=== PATIENT | male | born 1975 | race Caucasian/White ===

== ENCOUNTER 2016-05-30 11:05 | Emergency (ER) | payer BC ==
[~2016-05-30] VITALS: Ht 193 cm; Wt 79.7 kg
[~2016-05-30 11:05] MED LIST: NOHOMEMEDS
[2016-05-30 11:57] LABS: HEMATOCRIT 47.3 % (38.0-50.0); MCH 30.2 PG (29.0-34.0); MCHC 35.7 G/DL (30.0-36.0); MEAN PLAT.VOLUME 8.9 uM^3 (9.0-12.4); PLATELET COUNT 321 K/uL (156-360); RBC DIS.WIDTH-CV 12.2 % (11.8-14.6); RBC DIS.WIDTH-SD 37.1 % (39-53); RED BLOOD COUNT 5.59 M/uL (4.00-5.50)
[2016-05-30 12:02] LABS: ADD MIUA? NO; BILIRUBIN NEGATIVE; BLOOD NEGATIVE; COLOR STRAW ((YELLOW)); GLUCOSE (STRIP) NEGATIVE; KETONES 20; LEUKOCYTES NEGATIVE; NITRITE NEGATIVE; PROTEIN (STRIP) NEGATIVE; SPECIFIC GRAVITY 1.004 (1.000-1.030); UCUL ADDED? NO; UROBILINOGEN 0.2 MG/DL (0.2-1.0)
[2016-05-30 12:02] LABS: MCV 84.6 FL (86-99); WHITE BLOOD COUNT 8.3 K/uL (4.1-10.2)
[2016-05-30 12:07] LABS: CHLORIDE 105 mEq/L (99-109); POTASSIUM 4.1 mEq/L (3.7-5.4); SODIUM 139 mEq/L (136-147)
[2016-05-30 12:09] LABS: GLUCOSE 98 mg/dL (70-99)
[2016-05-30 12:10] LABS: ANION GAP 10 MEQ/L (2-14)
[2016-05-30 12:11] LABS: TOTAL BILIRUBIN 0.7 mg/dL (0.0-1.0)
[2016-05-30 12:13] LABS: ALKALINE PHOSPHATASE 75 IU/L (3-129); GFR ESTIMATE (CALCULATED) > 59 mL/min/
[2016-05-30 12:14] LABS: UREA NITROGEN (BUN) 6 mg/dL (9-23)
[2016-05-30 12:16] LABS: LIPASE 18 U/L (1.0-51.0)
[2016-05-30] MEDS ORDERED: ATARAX,VISTARIL50 MG PO (14:35)
[2016-05-30 15:18] VITALS: BP 129/74
== END 2016-05-30 15:21 | disposition home or self-care (01) ==
LOC: EME 11:05 → RME 11:05
DX: R10.31 Right lower quadrant pain (principal); R10.11 Right upper quadrant pain; F43.9 Reaction to severe stress, unspecified; R11.0 Nausea; F10.21 Alcohol dependence, in remission; F17.200 Nicotine dependence, unspecified, uncomplicated
CPT/HCPCS: 74177; 80053; 81003; 83690; 85027; 99281; 99285; J7030; Q0177

== ENCOUNTER 2017-02-26 13:59 | Emergency (ER) | payer BC ==
[~2017-02-26] VITALS: Ht 190.5 cm; Wt 83.3 kg
[~2017-02-26 13:59] MED LIST changes: +ATARAX,VISTARIL50 MG PO
[2017-02-26 14:41] LABS: EOSINOPHIL (%) 2.8 % (0-5); EOSINOPHIL COUNT 0.2 K/uL (0-0.3); IMMATURE GRANULOCYTE (%) 0.4 % (0.0-0.7); INSTRUMENT ABS NEUTROPHIL CT 4.6 K/uL; LYMPHOCYTE COUNT 1.8 K/uL (1.0-2.8); MCH 30.2 PG (29.0-34.0); MCHC 34.5 G/DL (30.0-36.0); MCV 87.7 FL (86-99); MEAN PLAT.VOLUME 9.1 uM^3 (9.0-12.4); MONOCYTE (%) 7.8 % (3-12); MONOCYTE COUNT 0.6 K/uL (0-0.8); NEUTROPHIL COUNT 4.6 K/uL (1.8-6.4); PLATELET COUNT 288 K/uL (156-360); RBC DIS.WIDTH-CV 12.3 % (11.8-14.6); RBC DIS.WIDTH-SD 40.1 % (39-53); RED BLOOD COUNT 5.36 M/uL (4.00-5.50); WHITE BLOOD COUNT 7.2 K/uL (4.1-10.2)
[2017-02-26 14:58] LABS: D-DIMER ELISA < 150.00 ng/mLDDU (<230)
[2017-02-26 14:59] LABS: PTT 27.1 SEC (25-37)
[2017-02-26 15:01] LABS: TROP-I INTERPRETATION NEGATIVE; TROPONIN-I < 0.01 ng/mL (0.0-0.30)
[2017-02-26 15:08] LABS: ANION GAP 6 MEQ/L (2-14); CHLORIDE 102 MEQ/L (99-109); POTASSIUM 4.1 MEQ/L (3.7-5.4); SAMPLE HEMOLYSIS CHECK 0; SAMPLE ICTERIC CHECK 0; SAMPLE LIPEMIA CHECK 0; SODIUM 136 MEQ/L (136-147)
[2017-02-26 15:14] LABS: GFR ESTIMATE (CALCULATED) > 59 mL/min/; GLUCOSE 96 mg/dL (70-99); UREA NITROGEN (BUN) 8 mg/dL (9-23)
[2017-02-26 16:56] LABS: TROP-I INTERPRETATION NEGATIVE; TROPONIN-I < 0.01 ng/mL (0.0-0.30)
[2017-02-26 18:07] VITALS: BP 131/84
== END 2017-02-26 18:09 | disposition home or self-care (01) ==
LOC: EME 13:59
PROVIDERS: Emergency Medicine
DX: R07.89 Other chest pain (principal); I10 Essential (primary) hypertension; F17.200 Nicotine dependence, unspecified, uncomplicated; Z88.0 Allergy status to penicillin
CPT/HCPCS: 71010; 80048; 84484; 85025; 85379; 85610; 85730; 93005; 99281; 99285